=== PATIENT | male | born 1970 | race Caucasian/White ===

== ENCOUNTER 2017-01-29 08:23 | Emergency (ER) | payer OTHER ==
[~2017-01-29] VITALS: Ht 170.2 cm; Wt 95.0 kg
[2017-01-29] MEDS ORDERED: FAMO20 PO (08:39)
[2017-01-29] MEDS ORDERED: GABA-531 PO (08:39)
[2017-01-29] MEDS ORDERED: FLUT16H NASAL (08:39)
[2017-01-29] MEDS ORDERED: MELO-273 PO (08:39)
[2017-01-29] MEDS ORDERED: MONT10TA21 PO (08:39)
[2017-01-29] MEDS ORDERED: ALBU8.5H IH (08:39)
[2017-01-29] MEDS ORDERED: ALBU8HFA IH (08:39)
[2017-01-29 08:42] LABS: GLUCOSE,POINT OF CARE 206 MG/DL (70-110)
[2017-01-29 11:01] VITALS: BP 138/83
== END 2017-01-29 11:33 | disposition home or self-care (01) ==
LOC: EMS 08:25
DX: J40 Bronchitis, not specified as acute or chronic (principal); J06.9 Acute upper respiratory infection, unspecified; J44.9 Chronic obstructive pulmonary disease, unspecified; K21.9 Gastro-esophageal reflux disease without esophagitis
CPT/HCPCS: 82962; 99283

== ENCOUNTER 2018-01-03 11:20 | Emergency (ER) | payer OTHER ==
[~2018-01-03] VITALS: Ht 167.6 cm; Wt 89.1 kg
[~2018-01-03 11:20] MED LIST: ALBU8.5H8 IH; ALBU8HFA IH; FAMO20 PO; FLUT16H NASAL; GABA-531 PO; MELO-107 PO; MONT10TA21 PO
[2018-01-03] MEDS ORDERED: POVIDONE-IODINE 10% 15 ML SOLUTION UD TP ONE (12:00)
[2018-01-03] MEDS ORDERED: ACETAMINOPHEN 500 MG TABLET PO ONE (12:00)
[2018-01-03] MEDS ORDERED: BACITRACIN 0.9 GM PACKET OINTMENT TP ONE (12:15)
[2018-01-03 12:49] VITALS: BP 143/98
== END 2018-01-03 13:12 | disposition home or self-care (01) ==
LOC: EMS 11:21
DX: S01.01XA Laceration without foreign body of scalp, initial encounter (principal); J44.9 Chronic obstructive pulmonary disease, unspecified; K21.9 Gastro-esophageal reflux disease without esophagitis; W22.8XXA Striking against or struck by other objects, initial encounter; Y93.89 Activity, other specified; Y92.810 Car as the place of occurrence of the external cause; Y99.8 Other external cause status
CPT/HCPCS: 12002; 99284

== ENCOUNTER 2025-07-11 23:28 | Emergency (ER) | payer OTHER ==
[~2025-07-11] VITALS: Ht 167.6 cm; Wt 79.5 kg
[2025-07-11 23:36] VITALS: TEMP 97.7
[2025-07-12 00:03] LABS: PLATELET COUNT (AUTO) 198 K/uL (150-450); RED BLOOD CELL COUNT(AUTO) 5.30 MIL/uL (4.50-5.90); RED CELL DISTRIBUTION WIDTH 13.4 % (11.5-14.5); WHITE BLOOD COUNT (AUTO) 5.8 K/uL (4.5-11.0)
[2025-07-12 00:17] LABS: CALCIUM, TOTAL 8.9 mg/dL (8.8-10.5); CREATININE 0.96 mg/dL (0.60-1.30); GLOMERULAR FILTR. RATE CALC > 60 mL/min (>60); GLUCOSE,RANDOM 243 mg/dL (70-110); SODIUM SERUM 135 mmol/L (136-145); UREA NITROGEN, BLOOD 12 mg/dL (7-18)
[2025-07-12 00:27] LABS: APPEARANCE,URINE CLEAR (CLEAR); GLUCOSE, URINE (UA) >=1000 mg/dL (NEGATIVE); LEUKOCYTE ESTERASE ,URINE NEGATIVE (NEGATIVE); NITRATE,URINE NEGATIVE (NEGATIVE); OCCULT BLOOD,URINE LARGE (NEGATIVE); SPECIFIC GRAVITIY, URINE 1.012 (1.003-1.030)
[2025-07-12 00:48] LABS: SQUAMOUS EPITHELIAL CELL,UR Few /LPF (None Seen)
[2025-07-12] MEDS: SODIUM CHLORIDE 0.9% 1,000 ML IV ONE (02:24)
[2025-07-12] MEDS: KETOROLAC TROMETHAMINE 30 MG/ML VIAL IVP ONE (02:24)
[2025-07-12] MEDS ORDERED: PHEN-846 PO (05:19)
[2025-07-12 05:21] VITALS: BP 118/75; PULSE 66; RESP 16; O2SAT 99
== END 2025-07-12 05:36 | disposition home or self-care (01) ==
LOC: EMS 23:40
DX: R31.9 Hematuria, unspecified (principal); J44.9 Chronic obstructive pulmonary disease, unspecified; E11.9 Type 2 diabetes mellitus without complications; K21.9 Gastro-esophageal reflux disease without esophagitis
CPT/HCPCS: 74176; 80048; 81001; 85025; 96361; 96374; 99285; J1885; J7030; 36415-L1; 36415-TC